=== PATIENT | male | born 1960 | race Caucasian/White ===

== ENCOUNTER 2023-06-19 11:37 | Day surgery (SDC) | payer BC ==
[~2023-06-19] VITALS: Ht 182.9 cm; Wt 106.6 kg
[~2023-06-19 11:37] MED LIST: LIDOCAINE 2%, 20 ML MDV ONE; NORMAL SALINE 10 ML VIAL ONE; iopamidoL 50 ML VIAL IV ONE; methylPREDNISolone ACETATE 40 MG/ML ONE
[2023-06-19] MEDS ORDERED: INSULIN REGULAR, HUMAN 100 UNITS/ML, 3 ML VIAL (humuLIN R) ONE (12:36)
[2023-06-19] MEDS: DIPHENHYDRAMINE INJ 50 MG/ML VIAL ONE (12:45)
[2023-06-19] MEDS: INSULIN REGULAR, HUMAN 100 UNITS/ML, 3 ML VIAL SUBCUT ONE (12:45)
[2023-06-19 13:10] VITALS: O2SAT 93
[2023-06-19] MEDS: fentaNYL CITRATE/PF 100 MCG/2 ML AMP ONE (13:25)
[2023-06-19] MEDS: MIDAZOLAM HCL 5 MG/5 ML VIAL ONE (13:26)
[2023-06-19 15:57] VITALS: BP_SYST 100; PULSE 92; RESP 18
== END 2023-06-19 14:30 | disposition home or self-care (01) ==
LOC: SDS 11:37 → SMU 11:39 → SDS 14:30
PROVIDERS: ATTEND Internal Medicine
DX: M51.34 Other intervertebral disc degeneration, thoracic region (principal); I10 Essential (primary) hypertension; E78.5 Hyperlipidemia, unspecified; E11.9 Type 2 diabetes mellitus without complications; Z79.84 Long term (current) use of oral hypoglycemic drugs; Z79.899 Other long term (current) drug therapy
CPT/HCPCS: 62321; 82948; J1815 ×2; J1200; J1030; J2250; J3010; Q9967; 76000; J2001